=== PATIENT | male | born 1950 | race Caucasian/White ===

== ENCOUNTER 2018-11-12 07:11 | Day surgery (SDC) | payer OTHER ==
[~2018-11-12] VITALS: Ht 162.6 cm; Wt 74.8 kg
[2018-11-12 08:00] VITALS: BP 147/92
[2018-11-12 12:17] VITALS: BP 147/83
== END 2018-11-12 10:25 | disposition home or self-care (01) ==
LOC: GI → OR 08:30 → GI 08:30
PROVIDERS: Internal Medicine
PROC: 0W3P8ZZ Control Bleeding in Gastrointestinal Tract, Via Natural or Artificial Opening Endoscopic (ICD-10-PCS; principal; 2018-11-12 08:30)
PROC: 0DBF8ZZ Excision of Right Large Intestine, Via Natural or Artificial Opening Endoscopic (ICD-10-PCS; 2018-11-12 08:30)
DX: K62.7 Radiation proctitis (principal); K62.5 Hemorrhage of anus and rectum; D12.2 Benign neoplasm of ascending colon; Z86.010 Personal history of colon polyps; Z85.46 Personal history of malignant neoplasm of prostate; Z92.3 Personal history of irradiation; W88.1XXA Exposure to radioactive isotopes, initial encounter; Y92.009 Unspecified place in unspecified non-institutional (private) residence as the place of occurrence of the external cause
CPT/HCPCS: 45378; J1200; J1610; J2250; J2310; J3010; J3490

== ENCOUNTER 2019-11-25 17:24 | Emergency (ER) | payer OTHER ==
[~2019-11-25] VITALS: Ht 165.1 cm; Wt 68.5 kg
[2019-11-25 18:12] LABS: CARBON DIOXIDE 22.9 mmol/L (21-32); CREATININE SERUM 1.3 mg/dL (0.7-1.3); POTASSIUM SERUM 5.2 mmol/L (3.5-5.1)
[2019-11-25 18:17] LABS: BASOPHIL % 0.3 % (0-2); PLATELET COUNT 292 x10^3mcL (130-400)
[2019-11-25 18:20] LABS: RED CELL DISTRIBUTION WIDTH 15.6 % (11.5-14.5)
[2019-11-25 18:21] LABS: ALBUMIN 3.9 g/dL (3.4-5.0); BILIRUBIN TOTAL 0.48 mg/dL (0.20-1.00); TOTAL PROTEIN, SERUM 8.7 g/dL (6.4-8.2)
[2019-11-25 19:04] LABS: UA SPECIFIC GRAVITY >=1.030 (1.005-1.035); microscopic required? YES; urine erythrocyte TRACE (NEGATIVE)
[2019-11-25 22:44] VITALS: BP 142/85
== END 2019-11-25 22:44 | disposition home or self-care (01) ==
LOC: ED 17:24
PROVIDERS: Emergency Medicine
DX: R19.7 Diarrhea, unspecified (principal); E86.0 Dehydration; E11.9 Type 2 diabetes mellitus without complications; I10 Essential (primary) hypertension; E78.00 Pure hypercholesterolemia, unspecified
CPT/HCPCS: 87046; 87046-59; 87804; J2405